=== PATIENT | female | born 1970 | race Caucasian/White ===

== ENCOUNTER → 2018-08-10 | Outpatient (CLI) | payer BC, OTHER ==
[2018-08-10 19:49] LABS: Gliadin AB IgA, Unit <0.2 U/mL
== END | disposition home or self-care (01) ==
LOC: LABWHC1 12:40
PROVIDERS: ATTEND Allergy & Immunology
DX: K21.9 Gastro-esophageal reflux disease without esophagitis (principal)
CPT/HCPCS: 36415; 82784; 83516; 86255

== ENCOUNTER → 2018-09-28 | Outpatient (CLI) | payer BC, OTHER ==
--- NOTE | 2018-09-29 07:22 | US ---
EXAMINATION TYPE: US pelvis complete transvag DATE OF EXAM: 09/28/2018 COMPARISON: None CLINICAL HISTORY: R10.2 pelvic pain. ML pain, Hx ovarian cysts, patient states spotting 3 times last month TECHNIQUE: Transvaginal (TV) and Transabdominal (TA) . Transabdominal sonographic images of the pel vis were acquired. Transvaginal sonographic images were medically necessary to better assess the fol lowing anatomy: Endometrium Date of LMP: 09/19/2018, EXAM MEASUREMENTS: Uterus: 10.1 x 5.2 x 4.1 cm Endometrial Stripe: 0.9 cm Right Ovary: 2.6 x1.5 x 1.4 cm Left Ovary: 2.8 x 1.7 x 1.7 cm 1. Uterus: Anteverted Midline anterior complex but predominantly hypoechoic lesion measures 0.8 x 0.8 x 0.8 cm . This appears to be myometrial and submucosal impressing on the endometrium. However th is does not have a typical appearance of a leiomyoma and does have a feeding vessel. 2. Endometrium: wnl 3. Right Ovary: wnl 4. Left Ovary: dominant follicle = 1.8 cm 5. Bilateral Adnexa: wnl 6. Posterior cul-de-sac: no free fluid Cervix- possible echogenic lesion seen with vascularity = 0.7 x 0.3 x 0.6 cm IMPRESSION: 1. Heterogenous approximately 8 mm lesion within the anterior mid body of the uterus appears submucos al and impresses upon the endometrium. However this does not appears a typical fibroid and has a feed ing vessel. Considerations are for arterial venous malformation, endometrial polyp with atypical imag ing features, or atypical leiomyoma. Pelvic MRI with contrast is recommended for further delineation. 2. Additionally there is a possible cervical polyp measuring 7 mm for which direct visualization is r ecommended.
== END | disposition home or self-care (01) ==
LOC: RADUSWWP 16:08
PROVIDERS: ATTEND Internal Medicine
DX: N84.0 Polyp of corpus uteri (principal); R93.41 Abnormal radiologic findings on diagnostic imaging of renal pelvis, ureter, or bladder
CPT/HCPCS: 76830; 76856